=== PATIENT | male | born 1990 | race Two or more races ===

== ENCOUNTER 2025-07-06 17:20 | Emergency (ER) | payer OTHER ==
[~2025-07-06] VITALS: Ht 185.4 cm; Wt 74.8 kg
[2025-07-06 17:27] VITALS: BP 105/64; O2SAT 100
[2025-07-06] MEDS ORDERED: ONDANSETRON HCL 2 MG/ML VIAL IV ONE (18:00)
[2025-07-06] MEDS ORDERED: FAMOTIDINE/PF 20 MG/2 ML VIAL IV ONE (18:00)
[2025-07-06] MEDS ORDERED: 0.9 % SODIUM CHLORIDE 1,000 ML IV ONE (18:00)
[2025-07-06] MEDS ORDERED: ONDANSETRON HCL 2 MG/ML VIAL ONE (18:28)
[2025-07-06] MEDS ORDERED: FAMOTIDINE/PF 20 MG/2 ML VIAL ONE (18:29)
[2025-07-06 19:12] LABS: BASO % 0.2 % (0.1-1.2); EOS # 0.00 (0.04-0.54); EOS % 0.0 % (0.7-7.0); LYMPH # 0.80 (1.18-3.74); LYMPH % 7.4 % (19.3-53.1); MEAN PLATELET VOLUME 9.80 fl (9.4-12.4); MONO # 0.61 (0.24-0.82); MONO % 5.6 % (4.7-12.5); NEUT # 9.37 (1.56-6.13); NEUT % 86.5 % (34.0-71.1); RED CELL DISTRIBUTION WIDTH 12.3 % (11.6-14.4)
[2025-07-06 19:47] LABS: ALT/SGPT 25.0 U/L (12-78); AST/SGOT 15.0 U/L (15-37); BILIRUBIN TOTAL 1.55 mg/dL (0.3-1.2); BUN CREA RATIO 16.0 (7.0-25.0); CREATININE SERUM 0.79 mg/dL (0.70-1.30); GFR 110.98; GLOBULINA 4.3 G/DL (2.4-3.5); GLUCOSE FASTING 137.0 mg/dL (65-100); OSMOLALITY SERUM 274.0 MOSM/KG (275-295)
[2025-07-06 20:57] LABS: BILIRUBIN TOTAL 1.64 mg/dL (0.3-1.2); BILIRUBIN,CONJUGATED 0.36 mg/dL (0.0-0.2)
[2025-07-06] MEDS ORDERED: PEPCID AC20 MG PO (22:42)
[2025-07-06] MEDS ORDERED: ONDANSETRON ODT4 MG PO (22:42)
== END 2025-07-06 23:28 | disposition home or self-care (01) ==
LOC: ER 17:21
PROVIDERS: Emergency Medicine; General Practice
DX: F12.90 Cannabis use, unspecified, uncomplicated (principal); R11.2 Nausea with vomiting, unspecified